=== PATIENT | female | born 2000 | race Caucasian/White ===

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

== ENCOUNTER 2022-03-07 18:02 | Emergency (ER) | payer MEDICAID, OTHER ==
[~2022-03-07] VITALS: Wt 99.8 kg
[~2022-03-07 18:02] MED LIST changes: +CELEXA20 MG PO; +CLARITIN10 MG PO; +PREDNISONE20 M1 PO; +PROAIR HFA8.5 GM INH; +ZYRTEC10 MG PO
[2022-03-07] MEDS ORDERED: NAPROSYN500 MG PO (20:49)
== END 2022-03-07 21:15 | disposition home or self-care (01) ==
LOC: ED 18:02
DX: S69.91XA Unspecified injury of right wrist, hand and finger(s), initial encounter (principal); Z91.018 Allergy to other foods; Z79.899 Other long term (current) drug therapy; W22.01XA Walked into wall, initial encounter; Y93.89 Activity, other specified; Y92.89 Other specified places as the place of occurrence of the external cause; Y99.8 Other external cause status

== ENCOUNTER 2022-12-15 17:24 | Emergency (ER) | payer MEDICAID ==
[~2022-12-15] VITALS: Ht 162.5 cm; Wt 100.7 kg
[~2022-12-15 17:24] MED LIST changes: +NAPROSYN500 MG PO; +ZITHROMAX250 MG PO
[2022-12-15] MEDS ORDERED: PREDNISONE50 MG PO (18:30)
== END 2022-12-15 18:33 | disposition home or self-care (01) ==
LOC: ED 17:24
DX: L23.7 Allergic contact dermatitis due to plants, except food (principal); J45.909 Unspecified asthma, uncomplicated; Z91.018 Allergy to other foods